=== PATIENT | female | born 1955 | race African-American/Black ===

== ENCOUNTER → 2019-12-05 | Outpatient (CLI) | payer OTHER ==
[~2019-12-05] MED LIST: ALLEGRA ALLERGY60 MG PO; ASPIRIN EC81 M1 PO; CITRACAL + D C1 EACH PO; HYDROXYCHLOROQ200 M1 PO; NASONEX17 GM; NORVASC 5 MG TAB5 MG PO; SINGULAIR 10 MG10 M1 PO; SYMBICORT160 MCG/4.; XOPENEX HF1 UDINHALE
== END ==
LOC: RAD 13:14
DX: R05 Cough (principal); R06.02 Shortness of breath